=== PATIENT | male | born 1980 | race Caucasian/White ===

== ENCOUNTER 2018-07-31 13:12 | Emergency (ER) | payer OTHER ==
[~2018-07-31] VITALS: Ht 162.6 cm; Wt 73.4 kg
[2018-07-31] MEDS ORDERED: BUPR150T73 PO (13:28)
[2018-07-31] MEDS ORDERED: TRAM50TA2 PO (13:28)
[2018-07-31] MEDS ORDERED: CLON0.5T11 PO (13:28)
[2018-07-31 15:12] VITALS: BP 122/70
== END 2018-07-31 15:15 | disposition home or self-care (01) ==
LOC: ED 14:34
DX: K40.90 Unilateral inguinal hernia, without obstruction or gangrene, not specified as recurrent (principal); R10.32 Left lower quadrant pain
CPT/HCPCS: 74176; 99284